=== PATIENT | male | born 1935 | race Caucasian/White ===

== ENCOUNTER 2021-01-21 08:49 | Emergency (ER) | payer MEDICARE ==
[2021-01-21 09:22] VITALS: BP 197/92; PULSE 78
--- NOTE | 2021-01-21 09:49 | EDM.PDOC ---
ED HPI GENERAL MEDICAL PROBLEM - General Chief Complaint: General Stated Complaint: L ARM SWOLLEN Time Seen by Provider: 01/21/21 09:15 Source of Information: Reports: Patient History Limitations: Reports: No Limitations - History of Present Illness INITIAL COMMENTS - FREE TEXT/NARRATIVE: pt states initial injury of skin tear about 2-3 weeks ago from a piece of wood. swelling and redness of immediate area starting 3 days ago and expressed purulent drainage earlier this morning. pt denies fever, chills, other injuries. Location: Reports: Upper Extremity, Left - Related Data Allergies Allergy/AdvReac Type Severity Reaction Status Date / Time hydrochlorothiazide Allergy Pain Verified 01/21/21 09:22 morphine Allergy Nausea and Verified 01/21/21 09:22 Vomiting penicillin Allergy Anaphylactic Verified 01/21/21 09:22 Shock Home Meds: Home Meds Hydrocodone/Acetaminophen [Hydrocodon-Acetaminophen 5-325] 2 each PO ASDIRECTED PRN 05/12/16 [History] Hydroxychloroquine [Plaquenil] 200 mg PO BID 05/12/16 [History] Losartan [Cozaar] 100 mg PO DAILY 05/12/16 [History] Nebivolol [Bystolic] 10 mg PO BID 05/12/16 [History] amLODIPine [Norvasc] 5 mg PO BEDTIME 05/12/16 [History] predniSONE [Prednisone] 5 mg PO DAILY 05/12/16 [History] Multivitamins,Ther w-Minerals [Multivitamins with Minerals HP] 1 each PO BID 08/17/16 [History] Sennosides/Docusate Sodium [Senna-Docusate Sodium] 1 each PO BID 08/17/16 [History] Amitriptyline [Elavil] 10 mg PO BEDTIME 08/18/16 [History] Calcium/Mag/D3/B12/FA/B6/[place] [Tl G-Fol OS] 1 each PO DAILY 08/18/16 [History] Fexofenadine [Kathleen] 180 mg PO DAILY 08/18/16 [History] Folic Acid 1 mg PO DAILY 08/18/16 [History] Lysine HCl [l-Lysine] 500 mg PO DAILY 08/18/16 [History] Magnesium Hydroxide [Milk of Magnesia] 30 ml PO DAILY PRN 08/18/16 [History] Omeprazole 20 mg PO DAILY 08/18/16 [History] Ondansetron [Zofran] 4 mg PO Q6H 08/18/16 [History] diphenhydrAMINE [Benadryl] 25 mg PO Q4H PRN 08/18/16 [History] polyethylene glycoL 3350 [Miralax] 17 gm PO DAILY PRN 08/18/16 [History] cephALEXin [Keflex] 500 mg PO Q8H #40 cap 01/21/21 [Rx] Past Medical History HEENT History: Reports: Sinusitis Other HEENT History: Chronic sinusitis Cardiovascular History: Reports: Hypertension Genitourinary History: Reports: Prostate Disorder Musculoskeletal History: Reports: Back Pain, Chronic, Osteoarthritis, Other (See Below) Other Musculoskeletal History: 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 Melanoma 1980 - Infectious Disease History Infectious Disease History: Reports: Chicken Pox, Measles, Mumps - Past Surgical History Musculoskeletal Surgical History: Reports: Other (See Below) Other Musculoskeletal Surgeries/Procedures:: Back surguries (1964). back pain: 510, varies. falls past year: 2x/ past year, fear of falling " my balance is not good" Dermatological Surgical History: Reports: Skin Biopsy Social & Family History - Family History Family Medical History: No Pertinent Family History - Tobacco Use Tobacco Use Status *Q: Never Tobacco User Second Hand Smoke Exposure: No - Caffeine Use Caffeine Use: Reports: Coffee - Alcohol Use Days Per Week of Alcohol Use: 5 Number of Drinks Per Day: 1 Total Drinks Per Week: 5 - Recreational Drug Use Recreational Drug Use: No ED ROS GENERAL - Review of Systems Review Of Systems: Comprehensive ROS is negative, except as noted in HPI. ED EXAM, GENERAL - Physical Exam Exam: See Below Exam Limited By: No Limitations General Appearance: Alert, WD/WN, No Apparent Distress Respiratory/Chest: No Respiratory Distress, Normal Breath Sounds, No Accessory Muscle Use Cardiovascular: Normal Peripheral Pulses, Regular Rate, Rhythm Peripheral Pulses: 2+: Radial (L), Radial (R) Extremities: Normal Range of Motion, Non-Tender, Normal Capillary Refill, Increased Warmth (left forearm), Redness (left forearm) Neurological: Alert, Oriented, CN II-XII Intact, Normal Cognition, Normal Gait Psychiatric: Normal Affect, Normal Mood Skin Exam: Warm, Dry, Intact, Diaphoretic Lymphatic: No Adenopathy Course - Vital Signs Last Recorded V/S: Last Vital Signs Temp 97.0 F 01/21/21 09:00 Pulse 78 01/21/21 09:00 Resp 18 01/21/21 09:00 BP 197/92 H 01/21/21 09:00 Pulse Ox 98 01/21/21 09:00 Departure - Departure Time of Disposition: 09:42 Disposition: Home, Self-Care 01 Condition: Good Clinical Impression: Cellulitis - Discharge Information *PRESCRIPTION DRUG MONITORING PROGRAM REVIEWED*: Not Applicable *COPY OF PRESCRIPTION DRUG MONITORING REPORT IN PATIENT KAMILAH: Not Applicable Prescriptions: cephALEXin [Keflex] 500 mg PO Q8H #40 cap Instructions: Cellulitis, Adult Referrals: PCP,None [Primary Care Provider] - Sepsis Event Note (ED) - Evaluation Sepsis Screening Result: No Definite Risk - Focused Exam Vital Signs: Vital Signs Temp Pulse Resp BP Pulse Ox 01/21/21 09:00 97.0 F 78 18 197/92 H 98 - Problem List & Annotations (1) Cellulitis SNOMED Code(s): 341290457 Code(s): L03.90 - CELLULITIS, UNSPECIFIED Status: Acute Current Visit: Yes - Problem List Review Problem List Initiated/Reviewed/Updated: Yes - Assessment/Plan Assessment:: cellulitlis of left forearm. treat with keflex QID. history of PCN allergy, based on medication being cephalosporin there is small chance of reaction. risk of side effects from other medications vs keflex discussed and pt agreeable to try keflex and stop if reaction occurs and new abx can be attempted.
== END 2021-01-21 09:50 | disposition home or self-care (01) ==
LOC: LB.ED 08:49
DX: L03.114 Cellulitis of left upper limb (principal); I10 Essential (primary) hypertension; Z79.899 Other long term (current) drug therapy; Z88.0 Allergy status to penicillin; Z88.6 Allergy status to analgesic agent; Z88.8 Allergy status to other drugs, medicaments and biological substances
CPT/HCPCS: 99283

== ENCOUNTER 2021-01-26 10:38 | Emergency (ER) | payer MEDICARE ==
[2021-01-26 10:51] VITALS: BP 203/90; PULSE 74
[2021-01-26] MEDS: Bacitracin Oint 1 GM U/D Packet TOP ONE (10:55)
--- NOTE | 2021-01-26 11:17 | EDM.PDOC ---
ED HPI GENERAL MEDICAL PROBLEM - General Chief Complaint: Laceration Stated Complaint: 01/13/21 HOME CUT ARM Time Seen by Provider: 01/26/21 10:54 - History of Present Illness INITIAL COMMENTS - FREE TEXT/NARRATIVE: Injured his left arm on a branch while mowing lawn 01-13-21. It seemed to be healing for 8 - 10 days, then started to get infected. He was seen 5 days ago in the ER. Started on Keflex. He thought it was better until today. Swelling is slowly getting worse. There was some drainage present today. No pain. Onset: Gradual Location: Reports: Upper Extremity, Left Treatments [employer]: Reports: Other (see below) (Keflex.) - Related Data Allergies Allergy/AdvReac Type Severity Reaction Status Date / Time hydrochlorothiazide Allergy Pain Verified 01/26/21 10:53 morphine Allergy Nausea and Verified 01/26/21 10:53 Vomiting penicillin Allergy Anaphylactic Verified 01/26/21 10:53 Shock Home Meds: Home Meds Hydrocodone/Acetaminophen [Hydrocodon-Acetaminophen 5-325] 2 each PO ASDIRECTED PRN 05/12/16 [History] Hydroxychloroquine [Plaquenil] 200 mg PO BID 05/12/16 [History] Losartan [Cozaar] 100 mg PO DAILY 05/12/16 [History] amLODIPine [Norvasc] 10 mg PO BEDTIME 05/12/16 [History] predniSONE [Prednisone] 5 mg PO DAILY 05/12/16 [History] Sennosides/Docusate Sodium [Senna-Docusate Sodium] 1 each PO BID 08/17/16 [History] Fexofenadine [Kathleen] 180 mg PO DAILY 08/18/16 [History] Lysine HCl [l-Lysine] 500 mg PO DAILY 08/18/16 [History] Omeprazole 20 mg PO DAILY 08/18/16 [History] diphenhydrAMINE [Benadryl] 25 mg PO Q4H PRN 08/18/16 [History] polyethylene glycoL 3350 [Miralax] 17 gm PO DAILY PRN 08/18/16 [History] cephALEXin [Keflex] 500 mg PO Q8H #40 cap 01/21/21 [Rx] Doxycycline [Vibra-Tabs] 100 mg PO Q12HR #20 tab 01/26/21 [Rx] Past Medical History HEENT History: Reports: Sinusitis Other HEENT History: Chronic sinusitis Cardiovascular History: Reports: Hypertension Genitourinary History: Reports: Prostate Disorder Musculoskeletal History: Reports: Back Pain, Chronic, Osteoarthritis, Other (See Below) Other Musculoskeletal History: 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 Melanoma 1980 - Infectious Disease History Infectious Disease History: Reports: Chicken Pox, Measles, Mumps - Past Surgical History Musculoskeletal Surgical History: Reports: Other (See Below) Other Musculoskeletal Surgeries/Procedures:: Back surguries (1964). back pain: 11/24, varies. falls past year: 2x/ past year, fear of falling " my balance is not good" Dermatological Surgical History: Reports: Skin Biopsy Social & Family History - Family History Family Medical History: No Pertinent Family History - Tobacco Use Tobacco Use Status *Q: Former Tobacco User Used Tobacco, but Quit: Yes Month/Year Tobacco Last Used: 1969 Second Hand Smoke Exposure: No - Caffeine Use Caffeine Use: Reports: Coffee - Recreational Drug Use Recreational Drug Use: No ED ROS GENERAL - Review of Systems Review Of Systems: Comprehensive ROS is negative, except as noted in HPI. ED EXAM, SKIN/RASH Exam: See Below Extremities: Normal Inspection, Normal Range of Motion, Non-Tender, No Pedal Edema, Normal Capillary Refill, Other Course - Vital Signs Last Recorded V/S: Last Vital Signs Temp 97.8 F 01/26/21 10:46 Pulse 74 01/26/21 10:46 Resp 16 01/26/21 10:46 BP 203/90 H 01/26/21 10:46 Pulse Ox 99 01/26/21 10:46 - Orders/Labs/Meds Meds: Medications Discontinued Medications Generic Name Dose Route Start Last Admin Trade Name Freq PRN Reason Stop Dose Admin Bacitracin 1 dose 01/26/21 10:55 01/26/21 10:55 Bacitracin Oint 1 Gm U/D Packet TOP 01/26/21 10:56 1 dose ONETIME ONE Administration Departure - Departure Time of Disposition: 11:21 Disposition: Home, Self-Care 01 Condition: Good Clinical Impression: Skin infection Cellulitis Qualifiers: Site of cellulitis of extremity: upper extremity Laterality: left - Discharge Information *PRESCRIPTION DRUG MONITORING PROGRAM REVIEWED*: Yes *COPY OF PRESCRIPTION DRUG MONITORING REPORT IN PATIENT KAMILAH: Yes Prescriptions: Doxycycline [Vibra-Tabs] 100 mg PO Q12HR #20 tab Instructions: Sulfamethoxazole; Trimethoprim, SMX-TMP tablets, Cellulitis, Gerald lt, [id number] Referrals: PCP,None [Primary Care Provider] - (Follow up in clinic in 2-3 days. Sooner in ER prn.) Forms: ED Department Discharge Additional Instructions: Change dressing to wound every day. Apply antibiotic ointment daily Take Bactrim DS- 1 Tab 2 times a day for 10 days Follow up in Clinic in 2-3 days Monitor for redness to travel up arm Call if any questions or concerns Sepsis Event Note (ED) - Evaluation Sepsis Screening Result: No Definite Risk - Focused Exam Vital Signs: Vital Signs Temp Pulse Resp BP Pulse Ox 01/26/21 10:46 97.8 F 74 16 203/90 H 99 - Problem List Review Problem List Initiated/Reviewed/Updated: Yes
== END 2021-01-26 11:21 | disposition home or self-care (01) ==
LOC: LB.ED 10:38
DX: L03.114 Cellulitis of left upper limb (principal); L08.9 Local infection of the skin and subcutaneous tissue, unspecified; I10 Essential (primary) hypertension; Z79.899 Other long term (current) drug therapy; Z87.891 Personal history of nicotine dependence; Z88.8 Allergy status to other drugs, medicaments and biological substances; Z88.5 Allergy status to narcotic agent; Z88.0 Allergy status to penicillin
CPT/HCPCS: 99283